=== PATIENT | male | born 1945 | race Two or more races ===

== ENCOUNTER 2019-02-03 12:44 | Inpatient (IN) | payer MEDICARE, MEDICAID ==
[~2019-02-03] VITALS: Ht 167.6 cm; Wt 54.0 kg
[2019-02-03] MEDS ORDERED: SODIUM CHLORIDE 0.9% 500 ML IV ONE (13:50)
[2019-02-03 14:23] LABS: HEMATOCRIT. 47.1 % (42.0-52.0); HEMOGLOBIN. 15.8 g/dL (14.0-18.0); MEAN CORPUSCULAR HEMOGLOBIN 31.3 pg (28.0-32.0); MEAN CORPUSCULAR VOLUME 93.3 fL (80.0-94.0); MEAN PLATELET VOLUME 9.1 fl (7.4-10.4); PLATELET 203 x1000/uL (130-400); RED BLOOD CELL COUNT 5.06 mill/uL (4.7-6.1); RED CELL DISTRIBUTION WIDTH 15.1 % (11.6-14.6)
[2019-02-03 14:27] LABS: CHLORIDE 98 mEq/L (98-107)
[2019-02-03 14:38] LABS: CREATINE KINASE 775 IU/L (39-308)
[2019-02-03 14:39] LABS: CREATINE KINASE MB FRACTION 15.2 ng/mL (0.5-3.6)
[2019-02-03] MEDS ORDERED: FUROSEMIDE 20MG/2ML VIAL IVP ONE (15:00)
[2019-02-03] MEDS: PIPERACILLIN/TAZ 3.375G PREMIX 50 ML IV ONE ×2 (15:15→16:30)
[2019-02-03] MEDS: LEVOFLOXACIN 500MG PREMIX 100 ML IV ONE ×2 (15:15→16:30)
[2019-02-03 15:29] LABS: PLATELET ESTIMATE NORMAL
[2019-02-03] MEDS ORDERED: ASPIRIN 81MG TABLET PO ONE (16:00)
[2019-02-03 16:03] LABS: CLARITY URINE CLEAR (CLEAR); COLOR URINE YELLOW (YELLOW); KETONES URINE 1+ (NEGATIVE); LEUKOCYTE ESTERASE URINE NEGATIVE (NEGATIVE); NITRITE URINE NEGATIVE (NEGATIVE); OCCULT BLOOD URINE NEGATIVE (NEGATIVE); PROTEIN URINE NEGATIVE (NEGATIVE); SPECIFIC GRAVITY URINE 1.015 (1.005-1.030)
[2019-02-03 16:21] LABS: *AMPHETAMINES SCREEN URINE NEGATIVE (NEGATIVE); *BARBITURATES SCREEN URINE NEGATIVE (NEGATIVE)
[2019-02-03 16:22] LABS: *BENZODIAZEPINES SCREEN URINE NEGATIVE (NEGATIVE); *COCAINE SCREEN URINE NEGATIVE (NEGATIVE); CANNABINOID URINE SCREEN NEGATIVE (NEGATIVE); METHADONE URINE SCREEN NEGATIVE (NEGATIVE); OPIATES URINE SCREEN NEGATIVE (NEGATIVE); PHENCYCLIDINE URINE SCREEN NEGATIVE (NEGATIVE)
[2019-02-03 16:23] LABS: INR 1.2; PARTIAL THROMBOPLASTIN TIME 32.5 sec (23.4-31.0); PROTHROMBIN TIME 12.6 sec (9.6-11.0)
[2019-02-03] MEDS ORDERED: GUAIFENESIN 200MG/10ML SUGAR FREE UDC PO PRN (17:00)
[2019-02-03] MEDS ORDERED: BUDESONIDE 0.5MG/2ML NEB HHN SCH (17:00)
[2019-02-03] MEDS ORDERED: NICOTINE 21MG PATCH TD SCH (17:00)
[2019-02-03] MEDS ORDERED: MAGNESIUM/ALUMINUM HYDROXIDE/SIMETHICONE 30ML UDC PO PRN (17:00)
[2019-02-03] MEDS ORDERED: CLONIDINE 0.1MG TABLET PO PRN (17:00)
[2019-02-03] MEDS ORDERED: HYDROCODONE/ACETAMINOPHEN 5/325MG TABLET PO PRN (17:00)
[2019-02-03] MEDS ORDERED: DIPHENHYDRAMINE 50MG/ML VIAL IV PRN (17:00)
[2019-02-03] MEDS ORDERED: DOCUSATE SODIUM 100MG CAPSULE PO PRN (17:00)
[2019-02-03] MEDS ORDERED: ONDANSETRON HCL 4MG/2ML INJ IV PRN (17:00)
[2019-02-03] MEDS ORDERED: ACETAMINOPHEN 325MG TABLET PO PRN (17:00)
[2019-02-03] MEDS ORDERED: IPRATROPIUM/ALBUTEROL 0.5-3(2.5)MG/3ML NEB HHN PRN (17:00)
[2019-02-03 19:05] LABS: PHOSPHORUS 2.3 mg/dL (2.5-4.9)
[2019-02-03] MEDS ORDERED: SODIUM CHLORIDE 0.9% 250 ML IV ONE (19:30)
[2019-02-03] MEDS ORDERED: IPRATROPIUM/ALBUTEROL 0.5-3(2.5)MG/3ML NEB HHN SCH (20:00)
[2019-02-04] VITALS (12 sets, daily range): BP systolic 89–142; BP diastolic 41–72
[2019-02-04 03:03] LABS: EOSINOPHILS % 1.3 % (0.0-5.0); HEMATOCRIT. 43.5 % (42.0-52.0); HEMOGLOBIN. 14.9 g/dL (14.0-18.0); LYMPHOCYTES % 7.2 % (20.0-50.0); MEAN CORPUSCULAR HEMOGLOBIN 32.3 pg (28.0-32.0); MEAN CORPUSCULAR VOLUME 94.5 fL (80.0-94.0); MEAN PLATELET VOLUME 8.3 fl (7.4-10.4); MONOCYTES % 9.6 % (2.0-8.0); NEUTROPHILS % 80.9 % (40.0-76.0); PLATELET 172 x1000/uL (130-400); RED BLOOD CELL COUNT 4.61 mill/uL (4.7-6.1)
[2019-02-04 03:08] LABS: CHLORIDE 99 mEq/L (98-107)
[2019-02-04 03:17] LABS: LDL CHOLESTEROL 61 mg/dL (5-100)
[2019-02-04 03:18] LABS: CREATINE KINASE MB FRACTION 13.9 ng/mL (0.5-3.6); HDL CHOLESTEROL 34 mg/dL (40-59)
[2019-02-04 03:29] LABS: CREATINE KINASE 1102 IU/L (39-308)
[2019-02-04] MEDS: NICOTINE 21MG PATCH TD SCH (08:18)
[2019-02-04] MEDS ORDERED: DEXTROSE 50% WATER 50ML SYRINGE IV NR (10:30)
[2019-02-04] MEDS ORDERED: FUROSEMIDE 40MG/4ML VIAL IVP NR (12:00)
[2019-02-04] MEDS: BUDESONIDE 0.5MG/2ML NEB HHN SCH ×2 (12:08→20:34)
[2019-02-04] MEDS: IPRATROPIUM/ALBUTEROL 0.5-3(2.5)MG/3ML NEB HHN SCH ×3 (12:08→20:34)
[2019-02-04] MEDS ORDERED: MAGNESIUM 1 G PREMIX 100 ML IV SCH (13:00)
[2019-02-04] MEDS ORDERED: SODIUM CHLORIDE 0.45% 500 ML IV ONE (13:15)
[2019-02-04 13:49] LABS: HEPATITIS B SURFACE ANTIGEN NEGATIVE
[2019-02-04 14:19] LABS: HEPATITIS A AB IGM NEGATIVE (NEGATIVE)
[2019-02-04] MEDS: NEOMY SULF/BACITRAC ZN/POLY OINT 28GM TOP SCH (21:42)
[2019-02-05] VITALS (12 sets, daily range): BP systolic 83–114; BP diastolic 39–65
[2019-02-05] MEDS: IPRATROPIUM/ALBUTEROL 0.5-3(2.5)MG/3ML NEB HHN SCH ×5 (00:06→20:47)
[2019-02-05 06:53] LABS: BASOPHILS % 0.7 % (0.0-2.0); EOSINOPHILS % 1.3 % (0.0-5.0); HEMATOCRIT. 40.9 % (42.0-52.0); HEMOGLOBIN. 14.1 g/dL (14.0-18.0); MEAN CORPUSCULAR HEMOGLOBIN 32.9 pg (28.0-32.0); MEAN CORPUSCULAR VOLUME 95.7 fL (80.0-94.0); MEAN PLATELET VOLUME 8.6 fl (7.4-10.4); MONOCYTES % 11.5 % (2.0-8.0); NEUTROPHILS % 78.5 % (40.0-76.0); PLATELET 162 x1000/uL (130-400); RED BLOOD CELL COUNT 4.27 mill/uL (4.7-6.1); RED CELL DISTRIBUTION WIDTH 15.3 % (11.6-14.6)
[2019-02-05 06:57] LABS: INR 1.1; PROTHROMBIN TIME 11.5 sec (9.6-11.0)
[2019-02-05 07:08] LABS: CHLORIDE 98 mEq/L (98-107)
[2019-02-05 07:25] LABS: CREATINE KINASE 683 IU/L (39-308)
[2019-02-05 07:28] LABS: CREATINE KINASE MB FRACTION 5.3 ng/mL (0.5-3.6)
[2019-02-05] MEDS: BUDESONIDE 0.5MG/2ML NEB HHN SCH ×2 (08:07→20:46)
[2019-02-05] MEDS ORDERED: SODIUM BICARBONATE 4% (2.4MEQ) 5ML VIAL IV ONE (09:41)
[2019-02-05] MEDS: NEOMY SULF/BACITRAC ZN/POLY OINT 28GM TOP SCH ×2 (11:41→21:10)
[2019-02-05] MEDS: NICOTINE 21MG PATCH TD SCH (11:44)
[2019-02-05 12:40] LABS: CREATINE KINASE 608 IU/L (39-308)
[2019-02-05] MEDS: LOSARTAN POTASSIUM 25 MG TABLET PO SCH (12:45)
[2019-02-05] MEDS: CARVEDILOL 3.125 MG TABLET PO SCH ×2 (13:00→21:00)
[2019-02-05 13:21] LABS: METHADONE URINE SCREEN NEGATIVE (NEGATIVE); OPIATES URINE SCREEN NEGATIVE (NEGATIVE)
[2019-02-05 13:22] LABS: *AMPHETAMINES SCREEN URINE NEGATIVE (NEGATIVE); *BARBITURATES SCREEN URINE NEGATIVE (NEGATIVE); *BENZODIAZEPINES SCREEN URINE NEGATIVE (NEGATIVE); *COCAINE SCREEN URINE NEGATIVE (NEGATIVE); CANNABINOID URINE SCREEN NEGATIVE (NEGATIVE); PHENCYCLIDINE URINE SCREEN NEGATIVE (NEGATIVE)
[2019-02-05 19:07] LABS: ANTI-CENTROMERE B ANTIBODIES < 0.2 AI (0.0-0.9); ANTI-JO 1 ABS <0.2 AI (0.0-0.9); RNP ANTIBODY < 0.2 AI (0.0-0.9); SMITH ANTIBODY < 0.2 AI (0.0-0.9)
[2019-02-05 19:12] LABS: ANTI-DNA DOUBLE STRANDED QUANT 3 IU/mL (0-9)
[2019-02-05 20:07] LABS: CLARITY URINE CLEAR (CLEAR); COLOR URINE YELLOW (YELLOW); KETONES URINE NEGATIVE (NEGATIVE); LEUKOCYTE ESTERASE URINE TRACE (NEGATIVE); NITRITE URINE NEGATIVE (NEGATIVE); OCCULT BLOOD URINE 3+ (NEGATIVE); PH URINE 6.5 (4.5-8.0); PROTEIN URINE TRACE (NEGATIVE); SPECIFIC GRAVITY URINE 1.021 (1.005-1.030)
[2019-02-06] VITALS (13 sets, daily range): BP systolic 93–120; BP diastolic 46–70
[2019-02-06] MEDS: IPRATROPIUM/ALBUTEROL 0.5-3(2.5)MG/3ML NEB HHN SCH ×4 (01:50→21:35)
[2019-02-06 05:17] LABS: HIV SCREEN 4G Non Reactive (Non Reactive)
[2019-02-06 06:39] LABS: BASOPHILS % 0.7 % (0.0-2.0); EOSINOPHILS % 2.9 % (0.0-5.0); HEMATOCRIT. 40.4 % (42.0-52.0); HEMOGLOBIN. 13.5 g/dL (14.0-18.0); LYMPHOCYTES % 9.1 % (20.0-50.0); MEAN CORPUSCULAR HEMOGLOBIN 32.2 pg (28.0-32.0); MEAN CORPUSCULAR VOLUME 96.7 fL (80.0-94.0); MEAN PLATELET VOLUME 8.4 fl (7.4-10.4); MONOCYTES % 10.8 % (2.0-8.0); NEUTROPHILS % 76.5 % (40.0-76.0); PLATELET 146 x1000/uL (130-400); RED BLOOD CELL COUNT 4.18 mill/uL (4.7-6.1); RED CELL DISTRIBUTION WIDTH 15.6 % (11.6-14.6)
[2019-02-06 07:12] LABS: CHLORIDE 98 mEq/L (98-107)
[2019-02-06] MEDS: BUDESONIDE 0.5MG/2ML NEB HHN SCH ×2 (08:06→21:35)
[2019-02-06] MEDS: NEOMY SULF/BACITRAC ZN/POLY OINT 28GM TOP SCH ×2 (09:00→14:00)
[2019-02-06] MEDS: LOSARTAN POTASSIUM 25 MG TABLET PO SCH (09:00)
[2019-02-06] MEDS: CARVEDILOL 3.125 MG TABLET PO SCH ×2 (09:00→21:00)
[2019-02-06] MEDS ORDERED: LIDOCAINE HCL 1% 20ML VIAL (Pyxis) INJ ONE ×2 (09:20→11:02)
[2019-02-06] MEDS ORDERED: IODIXANOL 320MG/ML 100 ML BOTTLE IV ONE ×2 (09:21→10:43)
[2019-02-06] MEDS: NICOTINE 21MG PATCH TD SCH (09:23)
[2019-02-06] MEDS ORDERED: NICARDIPINE 100MCG/ML 10ML VIAL (CATH LAB) IV ONE (10:12)
[2019-02-06] MEDS ORDERED: NITROGLYCERIN 50MCG/ML 10ML VIAL (CATH LAB) IV ONE (10:12)
[2019-02-06] MEDS ORDERED: HEPARIN SODIUM 1,000 UNIT/1ML VIAL IV ONE (10:12)
[2019-02-06] MEDS ORDERED: FENTANYL CITRATE/PF 50MCG/ML 2ML VIAL ONE (10:25)
[2019-02-06] MEDS ORDERED: IOHEXOL-300 100 ML BOTTLE ONE (10:25)
[2019-02-06] MEDS ORDERED: CLOPIDOGREL 75MG TABLET ONE (10:45)
[2019-02-06] MEDS ORDERED: ASPIRIN 325MG TABLET ONE (11:19)
[2019-02-06] MEDS ORDERED: ONDANSETRON HCL 4MG/2ML INJ IV PRN (11:30)
[2019-02-06] MEDS ORDERED: ATROPINE SULFATE 1MG/10ML SYR IV PRN (11:30)
[2019-02-06] MEDS ORDERED: ACETAMINOPHEN 325MG TABLET PO PRN (11:30)
[2019-02-06] MEDS ORDERED: ASPIRIN 81MG EC TABLET PO SCH (15:00)
[2019-02-06 19:07] LABS: DRVVT LA 47.8 sec (0.0-47.0); PTT-LA 41.3 sec (0.0-51.9)
[2019-02-07] VITALS (12 sets, daily range): BP systolic 73–120; BP diastolic 39–69
[2019-02-07] MEDS: IPRATROPIUM/ALBUTEROL 0.5-3(2.5)MG/3ML NEB HHN SCH ×4 (02:00→20:27)
[2019-02-07 04:11] LABS: DRVVT MIX LA 38.6 sec (0.0-47.0); LUPUS ANTICOAG INTERPRETATION Comment: (.)
[2019-02-07 07:07] LABS: CHLORIDE 97 mEq/L (98-107)
[2019-02-07 07:13] LABS: BASOPHILS % 0.5 % (0.0-2.0); EOSINOPHILS % 2.4 % (0.0-5.0); HEMATOCRIT. 41.2 % (42.0-52.0); HEMOGLOBIN. 13.9 g/dL (14.0-18.0); LYMPHOCYTES % 7.7 % (20.0-50.0); MEAN CORPUSCULAR HEMOGLOBIN 32.2 pg (28.0-32.0); MEAN CORPUSCULAR VOLUME 95.5 fL (80.0-94.0); MEAN PLATELET VOLUME 8.6 fl (7.4-10.4); MONOCYTES % 9.4 % (2.0-8.0); PLATELET 148 x1000/uL (130-400); RED BLOOD CELL COUNT 4.31 mill/uL (4.7-6.1); RED CELL DISTRIBUTION WIDTH 15.4 % (11.6-14.6)
[2019-02-07] MEDS: CLOPIDOGREL 75MG TABLET PO SCH (08:27)
[2019-02-07] MEDS: ASPIRIN 325MG TABLET PO SCH (08:27)
[2019-02-07] MEDS: CARVEDILOL 3.125 MG TABLET PO SCH ×2 (08:28→21:00)
[2019-02-07] MEDS: LOSARTAN POTASSIUM 25 MG TABLET PO SCH (08:28)
[2019-02-07] MEDS: NICOTINE 21MG PATCH TD SCH (08:28)
[2019-02-07 09:07] LABS: ANGIOTENSION CONVERTING ENZYME 27 U/L (14-82); GLOMERULAR BASEMENT MEMB AB 2 units (0-20)
[2019-02-07] MEDS: BUDESONIDE 0.5MG/2ML NEB HHN SCH (09:15)
[2019-02-07] MEDS: FUROSEMIDE 20MG/2ML VIAL IVP SCH (10:04)
[2019-02-07] MEDS: NEOMY SULF/BACITRAC ZN/POLY OINT 28GM TOP SCH ×2 (10:58→21:25)
[2019-02-07 14:56] LABS: CREATINE KINASE 233 IU/L (39-308)
[2019-02-07 15:06] LABS: ANTI-MYELOPEROXIDASE AB < 9.0 U/mL (0.0-9.0); ANTI-PROTEINASE 3 ABS < 3.5 U/mL (0.0-3.5); ATYPICAL P-ANCA <1:20 titer (Neg:<1:20); CYTOPLASMIC C-ANCA <1:20 titer (Neg:<1:20); PERINUCLEAR P-ANCA <1:20 titer (Neg:<1:20)
[2019-02-08] VITALS (12 sets, daily range): BP systolic 81–127; BP diastolic 43–69
[2019-02-08] MEDS: IPRATROPIUM/ALBUTEROL 0.5-3(2.5)MG/3ML NEB HHN SCH ×3 (01:06→14:28)
[2019-02-08 07:04] LABS: BASOPHILS % 0.6 % (0.0-2.0); EOSINOPHILS % 2.5 % (0.0-5.0); HEMATOCRIT. 38.8 % (42.0-52.0); HEMOGLOBIN. 13.5 g/dL (14.0-18.0); LYMPHOCYTES % 8.2 % (20.0-50.0); MEAN CORPUSCULAR HEMOGLOBIN 33.7 pg (28.0-32.0); MEAN CORPUSCULAR VOLUME 96.9 fL (80.0-94.0); MEAN PLATELET VOLUME 8.8 fl (7.4-10.4); MONOCYTES % 9.1 % (2.0-8.0); NEUTROPHILS % 79.6 % (40.0-76.0); PLATELET 137 x1000/uL (130-400); RED BLOOD CELL COUNT 4.01 mill/uL (4.7-6.1); RED CELL DISTRIBUTION WIDTH 15.4 % (11.6-14.6)
[2019-02-08 07:26] LABS: CHLORIDE 97 mEq/L (98-107)
[2019-02-08 07:46] LABS: PHOSPHORUS 2.4 mg/dL (2.5-4.9)
[2019-02-08] MEDS: NICOTINE 21MG PATCH TD SCH (09:34)
[2019-02-08] MEDS: FUROSEMIDE 20MG/2ML VIAL IVP SCH (09:34)
[2019-02-08] MEDS: LOSARTAN POTASSIUM 25 MG TABLET PO SCH (09:35)
[2019-02-08] MEDS: ASPIRIN 325MG TABLET PO SCH (09:35)
[2019-02-08] MEDS: NEOMY SULF/BACITRAC ZN/POLY OINT 28GM TOP SCH ×2 (09:35→21:53)
[2019-02-08] MEDS: CLOPIDOGREL 75MG TABLET PO SCH (09:35)
[2019-02-08] MEDS: CARVEDILOL 3.125 MG TABLET PO SCH ×2 (09:35→21:00)
[2019-02-08] MEDS ORDERED: SODIUM CHLORIDE 0.9% 500 ML IV ONE (13:00)
[2019-02-08] MEDS ORDERED: POTASSIUM-SODIUM PHOSPHATE POWDER PACKET PO NR (13:05)
[2019-02-08 15:09] LABS: ACTIN (SMOOTH MUSCLE) ANTIBODY 13 Units (0-19)
[2019-02-09] VITALS (12 sets, daily range): BP systolic 90–129; BP diastolic 40–80
[2019-02-09] MEDS: IPRATROPIUM/ALBUTEROL 0.5-3(2.5)MG/3ML NEB HHN SCH ×4 (02:06→20:38)
[2019-02-09 05:46] LABS: BASOPHILS % 0.7 % (0.0-2.0); EOSINOPHILS % 2.4 % (0.0-5.0); HEMATOCRIT. 42.3 % (42.0-52.0); HEMOGLOBIN. 14.5 g/dL (14.0-18.0); MEAN CORPUSCULAR HEMOGLOBIN 33.8 pg (28.0-32.0); MEAN CORPUSCULAR VOLUME 98.6 fL (80.0-94.0); MEAN PLATELET VOLUME 8.8 fl (7.4-10.4); NEUTROPHILS % 78.9 % (40.0-76.0); PLATELET 142 x1000/uL (130-400); RED BLOOD CELL COUNT 4.29 mill/uL (4.7-6.1); RED CELL DISTRIBUTION WIDTH 15.8 % (11.6-14.6)
[2019-02-09 05:55] LABS: CHLORIDE 99 mEq/L (98-107)
[2019-02-09 06:03] LABS: CREATINE KINASE 133 IU/L (39-308)
[2019-02-09] MEDS: NICOTINE 21MG PATCH TD SCH (08:31)
[2019-02-09] MEDS: CLOPIDOGREL 75MG TABLET PO SCH (08:31)
[2019-02-09] MEDS: ASPIRIN 325MG TABLET PO SCH (08:31)
[2019-02-09] MEDS: NEOMY SULF/BACITRAC ZN/POLY OINT 28GM TOP SCH (08:31)
[2019-02-09] MEDS: LOSARTAN POTASSIUM 25 MG TABLET PO SCH (08:32)
[2019-02-09] MEDS: CARVEDILOL 3.125 MG TABLET PO SCH (08:32)
[2019-02-10 13:09] LABS: ANTI-CARDIOLIPIN AB IGA < 9 APL U/mL (0-11); ANTI-CARDIOLIPIN AB IGG < 9 GPL U/mL (0-14)
[2019-02-11 04:19] LABS: ANTI-HU ANTIBODIES <1:10 titer (.)
== END 2019-02-09 21:30 | DRG 246 ==
LOC: ER 12:44 → 5EST 15:07 → EDBEDREQ 15:10 → EDBEDREQSVC 15:10 → ENRESERV 02-04 00:05 → ER 02-04 01:48 → 3WST 02-06 11:27
PROVIDERS: ADMIT Internal Medicine; ATTEND Internal Medicine
PROC: 0W993ZZ Drainage of Right Pleural Cavity, Percutaneous Approach (ICD-10-PCS; principal; 2019-02-05)
PROC: 027135Z Dilation of Coronary Artery, Two Arteries with Two Drug-eluting Intraluminal Devices, Percutaneous Approach (ICD-10-PCS; 2019-02-06)
PROC: 4A023N7 Measurement of Cardiac Sampling and Pressure, Left Heart, Percutaneous Approach (ICD-10-PCS; 2019-02-06)
PROC: 4A033BC Measurement of Arterial Pressure, Coronary, Percutaneous Approach (ICD-10-PCS; 2019-02-06)
PROC: B211YZZ Fluoroscopy of Multiple Coronary Arteries using Other Contrast (ICD-10-PCS; 2019-02-06)
PROC: B215YZZ Fluoroscopy of Left Heart using Other Contrast (ICD-10-PCS; 2019-02-06)
DX: I21.4 Non-ST elevation (NSTEMI) myocardial infarction (principal); J96.00 Acute respiratory failure, unspecified whether with hypoxia or hypercapnia; I50.21 Acute systolic (congestive) heart failure; J44.1 Chronic obstructive pulmonary disease with (acute) exacerbation; E44.0 Moderate protein-calorie malnutrition; J84.9 Interstitial pulmonary disease, unspecified; J91.8 Pleural effusion in other conditions classified elsewhere; E87.1 Hypo-osmolality and hyponatremia; I42.9 Cardiomyopathy, unspecified; I11.0 Hypertensive heart disease with heart failure; T79.6XXA Traumatic ischemia of muscle, initial encounter; E83.42 Hypomagnesemia; R74.0 Nonspecific elevation of levels of transaminase and lactic acid dehydrogenase [LDH]; G80.9 Cerebral palsy, unspecified; L89.320 Pressure ulcer of left buttock, unstageable; L89.310 Pressure ulcer of right buttock, unstageable; F17.210 Nicotine dependence, cigarettes, uncomplicated; R79.89 Other specified abnormal findings of blood chemistry; L89.159 Pressure ulcer of sacral region, unspecified stage; N50.89 Other specified disorders of the male genital organs; R82.71 Bacteriuria; R55 Syncope and collapse; R91.8 Other nonspecific abnormal finding of lung field; K76.1 Chronic passive congestion of liver; I25.10 Atherosclerotic heart disease of native coronary artery without angina pectoris; I44.7 Left bundle-branch block, unspecified; F79 Unspecified intellectual disabilities; I95.89 Other hypotension; R29.6 Repeated falls; E83.39 Other disorders of phosphorus metabolism; R15.9 Full incontinence of feces; R32 Unspecified urinary incontinence; S40.812A Abrasion of left upper arm, initial encounter; S40.811A Abrasion of right upper arm, initial encounter; W18.30XA Fall on same level, unspecified, initial encounter; Y93.89 Activity, other specified; Y92.89 Other specified places as the place of occurrence of the external cause; Y99.8 Other external cause status; Z82.49 Family history of ischemic heart disease and other diseases of the circulatory system; Z86.73 Personal history of transient ischemic attack (TIA), and cerebral infarction without residual deficits
CPT/HCPCS: 32555; 36415; 71045; 74176; 76705; 80048; 80061; 80076; 80305; 82164; 82533; 82550; 82553; 82595; 82962; 83036; 83520; 83735; 83880; 84100; 84134; 84443; 84484; 85347; 85379; 85613; 85651; 85732; 86038; 86140; 86147; 86225; 86235; 86256; 86705; 86709; 86803; 87340; 87389; 87804; 88108; 88312; 92928; 92978; 93005; 93306; 93458; 93970; 94640; 96365; 96368; 96375; 97162; 97166; 97530; 99291; C1760; C1769; C1874; C1887; C1893; J1644; J1940; J1956; J2543; J3010; J3475; J3490; J7040; J7620; J7626; Q9967

== ENCOUNTER 2019-02-11 13:13 | Inpatient (IN) | payer MEDICARE, MEDICAID ==
[~2019-02-11] VITALS: Ht 172.7 cm; Wt 54.4 kg
[2019-02-11] VITALS (15 sets, daily range): BP systolic 74–166; BP diastolic 60–117
[2019-02-11] MEDS ORDERED: PROPOFOL 10MG/ML 100ML 100 ML IV ONE (13:30)
[2019-02-11] MEDS ORDERED: ETOMIDATE 2MG/ML 10ML VIAL IV ONE (13:30)
[2019-02-11] MEDS ORDERED: SODIUM CHLORIDE 0.9% 1000ML BAG (SEPSIS BOLUS) IV ONE (13:30)
[2019-02-11] MEDS ORDERED: PIPERACILLIN/TAZOBACTAM 3.375GM/50ML PREMIX IV ONE (13:30)
[2019-02-11] MEDS ORDERED: METHYLPREDNISOLONE SOD SUCC 125 MG/2 ML VIAL IV STA (13:30)
[2019-02-11] MEDS ORDERED: ALBUTEROL (0.083%) 2.5MG/3ML NEB HHN SCH (13:30)
[2019-02-11] MEDS ORDERED: IPRATROPIUM BROMIDE (0.02%) 0.5MG/2.5ML NEB HHN STA (13:30)
[2019-02-11] MEDS ORDERED: SUCCINYLCHOLINE CHLORIDE 200MG/10ML IV ONE (13:30)
[2019-02-11] MEDS ORDERED: NOREPINEPHRINE 4MG/250ML PMX 250 ML IV ONE ×2 (13:35→13:45)
[2019-02-11] MEDS ORDERED: VANCOMYCIN 1500MG in DEXTROSE 5% WATER 250ML IV SCH (13:45)
[2019-02-11] MEDS ORDERED: PIPERACILLIN/TAZ 3.375G PREMIX 50 ML IV SCH (13:45)
[2019-02-11 13:48] LABS: BASOPHILS % 0.6 % (0.0-2.0); EOSINOPHILS % 1.1 % (0.0-5.0); HEMATOCRIT. 43.3 % (42.0-52.0); LYMPHOCYTES % 8.5 % (20.0-50.0); MEAN CORPUSCULAR HEMOGLOBIN 33.5 pg (28.0-32.0); MEAN CORPUSCULAR VOLUME 96.5 fL (80.0-94.0); MEAN PLATELET VOLUME 9.2 fl (7.4-10.4); NEUTROPHILS % 82.8 % (40.0-76.0); PLATELET 223 x1000/uL (130-400); RED BLOOD CELL COUNT 4.48 mill/uL (4.7-6.1); RED CELL DISTRIBUTION WIDTH 15.2 % (11.6-14.6)
[2019-02-11 13:54] LABS: CHLORIDE 93 mEq/L (98-107)
[2019-02-11 13:55] LABS: PROTHROMBIN TIME 10.2 sec (9.6-11.0)
[2019-02-11 14:03] LABS: BG BASE EXCESS 1.5 mmol/L (-2.0-2.0); BG CARBOXYHEMOGLOBIN 1.3 % (0.5-1.5); BG DEOXYHEMOGLOBIN 1.4 % (0.0-5.0); BG FRACTION INSPIRED OXYGEN 100; BG HCO3 ACT 27.8 mmol/L (22.0-26.0); BG OXYGEN SATURATION 98.6 % (92.0-98.5); BG OXYHEMOGLOBIN 97.3 % (94.0-97.0); BG PCO2 49.8 mmHg (35.0-45.0); BG PH 7.364 (7.350-7.450); BG SAMPLE SITE RIGHT BRACHIAL; BG TIDAL VOLUME(mL) 500 mL; BG TOTAL HEMOGLOBIN 14.5 g/dL (12.0-18.0); BG VENT MODE VENT - A/C; BG VENT RATE 20 set
[2019-02-11] MEDS ORDERED: GUAIFENESIN 200MG/10ML SUGAR FREE UDC PO PRN (15:30)
[2019-02-11] MEDS: PIPERACILLIN/TAZ 3.375G PREMIX 50 ML IV SCH ×2 (15:30→23:17)
[2019-02-11] MEDS ORDERED: HYDROMORPHONE HCL/PF 2MG/ML CPJ IV PRN (15:30)
[2019-02-11] MEDS ORDERED: IPRATROPIUM/ALBUTEROL 0.5-3(2.5)MG/3ML NEB INH PRN (15:30)
[2019-02-11] MEDS ORDERED: HYDROCODONE/ACETAMINOPHEN 5/325MG TABLET PO PRN (15:30)
[2019-02-11] MEDS ORDERED: DIPHENHYDRAMINE 50MG/ML VIAL IV PRN (15:30)
[2019-02-11] MEDS ORDERED: LORAZEPAM 2MG/ML CPJ IV PRN (15:30)
[2019-02-11] MEDS ORDERED: CLONIDINE 0.1MG TABLET PO PRN (15:30)
[2019-02-11] MEDS ORDERED: ACETAMINOPHEN 325MG TABLET PO PRN (15:30)
[2019-02-11] MEDS ORDERED: DOCUSATE SODIUM 100MG CAPSULE PO PRN (15:30)
[2019-02-11] MEDS ORDERED: MAGNESIUM/ALUMINUM HYDROXIDE/SIMETHICONE 30ML UDC PO PRN (15:30)
[2019-02-11] MEDS ORDERED: HYDRALAZINE 20MG/ML VIAL IV PRN (15:30)
[2019-02-11] MEDS ORDERED: NOREPINEPHRINE 4 MG in DEXT 5% WATER 246 ML IV PRN (15:30)
[2019-02-11] MEDS ORDERED: ONDANSETRON HCL 4MG/2ML INJ IV PRN (15:30)
[2019-02-11 16:44] LABS: CLARITY URINE CLEAR (CLEAR); COLOR URINE YELLOW (YELLOW); KETONES URINE NEGATIVE (NEGATIVE); LEUKOCYTE ESTERASE URINE 1+ (NEGATIVE); NITRITE URINE NEGATIVE (NEGATIVE); OCCULT BLOOD URINE NEGATIVE (NEGATIVE); PH URINE 5.5 (4.5-8.0); PROTEIN URINE NEGATIVE (NEGATIVE); SPECIFIC GRAVITY URINE 1.017 (1.005-1.030)
[2019-02-11] MEDS ORDERED: IOHEXOL-350 100 ML BOTTLE ONE (17:02)
[2019-02-11] MEDS ORDERED: FUROSEMIDE 40MG/4ML VIAL IVP NR (17:45)
[2019-02-11] MEDS: ENOXAPARIN 40MG/0.4ML SYR SUBCUT SCH (18:29)
[2019-02-11] MEDS: PANTOPRAZOLE SODIUM 40 MG/VIAL IV SCH (18:29)
[2019-02-11] MEDS: PROPOFOL 10MG/ML 100ML 100 ML IV PRN ×2 (19:19→23:11)
[2019-02-11] MEDS: NOREPINEPHRINE 8 MG in DEXT 5% WATER 242 ML IV PRN (19:42)
[2019-02-11] MEDS: IPRATROPIUM/ALBUTEROL 0.5-3(2.5)MG/3ML NEB HHN SCH (20:26)
[2019-02-11] MEDS: SODIUM CHLORIDE 0.9% INJ 3ML FLUSH IVF SCH (22:00)
[2019-02-11 23:19] LABS: CREATINE KINASE MB FRACTION 3.4 ng/mL (0.5-3.6)
[2019-02-12] VITALS (89 sets, daily range): BP systolic 52–161; BP diastolic 29–107
[2019-02-12] MEDS: NOREPINEPHRINE 8 MG in DEXT 5% WATER 242 ML IV PRN ×5 (00:15→23:49)
[2019-02-12] MEDS: IPRATROPIUM/ALBUTEROL 0.5-3(2.5)MG/3ML NEB HHN SCH ×6 (00:21→20:29)
[2019-02-12] MEDS ORDERED: VANCOMYCIN 1 G PREMIX 200 ML IV SCH (01:00)
[2019-02-12 05:55] LABS: HEMATOCRIT. 45.5 % (42.0-52.0); HEMOGLOBIN. 16.2 g/dL (14.0-18.0); MEAN CORPUSCULAR HEMOGLOBIN 33.5 pg (28.0-32.0); MEAN CORPUSCULAR VOLUME 94.5 fL (80.0-94.0); MEAN PLATELET VOLUME 9.1 fl (7.4-10.4); PLATELET 252 x1000/uL (130-400); RED BLOOD CELL COUNT 4.81 mill/uL (4.7-6.1)
[2019-02-12] MEDS: SODIUM CHLORIDE 0.9% INJ 3ML FLUSH IVF SCH ×3 (06:11→22:39)
[2019-02-12 06:16] LABS: CHLORIDE 92 mEq/L (98-107)
[2019-02-12 06:36] LABS: CREATINE KINASE 62 IU/L (39-308); T4 FREE 0.85 ng/dL (0.76-1.46)
[2019-02-12] MEDS: BUDESONIDE 0.5MG/2ML NEB HHN SCH ×2 (08:04→20:29)
[2019-02-12] MEDS: PIPERACILLIN/TAZ 3.375G PREMIX 50 ML IV SCH ×3 (08:30→23:37)
[2019-02-12] MEDS: PANTOPRAZOLE SODIUM 40 MG/VIAL IV SCH (08:30)
[2019-02-12 08:35] LABS: BG BASE EXCESS 6.9 mmol/L (-2.0-2.0); BG CARBOXYHEMOGLOBIN 0.8 % (0.5-1.5); BG DEOXYHEMOGLOBIN 4.3 % (0.0-5.0); BG FRACTION INSPIRED OXYGEN 40; BG HCO3 ACT 31.1 mmol/L (22.0-26.0); BG METHEMOGLOBIN 0.2 % (0.0-1.5); BG OXYGEN SATURATION 95.7 % (92.0-98.5); BG OXYHEMOGLOBIN 94.7 % (94.0-97.0); BG PCO2 42.5 mmHg (35.0-45.0); BG PH 7.482 (7.350-7.450); BG PO2 74.2 mmHg (75.0-100.0); BG SAMPLE SITE RIGHT RADIAL; BG TIDAL VOLUME(mL) 500 mL; BG VENT MODE VENT - A/C; BG VENT RATE 14 set
[2019-02-12] MEDS ORDERED: ASPIRIN 81MG EC TABLET PO SCH (09:00)
[2019-02-12] MEDS ORDERED: PROPOFOL 10MG/ML 100ML 100 ML IV PRN (10:15)
[2019-02-12] MEDS ORDERED: FUROSEMIDE 40MG/4ML VIAL IVP NR (10:15)
[2019-02-12] MEDS ORDERED: ASPIRIN 81MG EC TABLET PO NR (11:15)
[2019-02-12] MEDS: CLOPIDOGREL 75MG TABLET PO SCH (11:38)
[2019-02-12 11:44] LABS: PLATELET ESTIMATE NORMAL
[2019-02-12] MEDS: FENTANYL CITRATE/PF 500 MCG in SODIUM CHLORIDE 0.9% 40 ML IV PRN (11:44)
[2019-02-12] MEDS: VANCOMYCIN 750 MG PREMIX 150 ML IV SCH (14:40)
[2019-02-12] MEDS: ENOXAPARIN 40MG/0.4ML SYR SUBCUT SCH (17:53)
[2019-02-13] VITALS (83 sets, daily range): BP systolic 67–163; BP diastolic 37–99
[2019-02-13] MEDS: IPRATROPIUM/ALBUTEROL 0.5-3(2.5)MG/3ML NEB HHN SCH ×6 (00:34→20:24)
[2019-02-13] MEDS: VANCOMYCIN 750 MG PREMIX 150 ML IV SCH ×2 (01:32→13:40)
[2019-02-13] MEDS: SODIUM CHLORIDE 0.9% INJ 3ML FLUSH IVF SCH ×3 (05:24→22:19)
[2019-02-13 05:38] LABS: CREATINE KINASE MB FRACTION 1.6 ng/mL (0.5-3.6)
[2019-02-13] MEDS: NOREPINEPHRINE 8 MG in DEXT 5% WATER 242 ML IV PRN ×2 (05:57→13:41)
[2019-02-13] MEDS: BUDESONIDE 0.5MG/2ML NEB HHN SCH ×2 (07:33→20:24)
[2019-02-13] MEDS: PIPERACILLIN/TAZ 3.375G PREMIX 50 ML IV SCH ×3 (07:46→23:51)
[2019-02-13 07:52] LABS: BG BASE EXCESS 5.9 mmol/L (-2.0-2.0); BG CARBOXYHEMOGLOBIN 0.8 % (0.5-1.5); BG DEOXYHEMOGLOBIN 1.8 % (0.0-5.0); BG HCO3 ACT 28.2 mmol/L (22.0-26.0); BG METHEMOGLOBIN 0.2 % (0.0-1.5); BG OXYGEN SATURATION 98.2 % (92.0-98.5); BG OXYHEMOGLOBIN 97.2 % (94.0-97.0); BG PCO2 33.4 mmHg (35.0-45.0); BG PH 7.544 (7.350-7.450); BG PO2 106.7 mmHg (75.0-100.0); BG SAMPLE SITE RIGHT RADIAL; BG TIDAL VOLUME(mL) 500 mL; BG TOTAL HEMOGLOBIN 14.3 g/dL (12.0-18.0); BG VENT MODE VENT - A/C; BG VENT RATE 20 set
[2019-02-13 08:04] LABS: HEMATOCRIT 40.9 % (42.0-52.0); HEMOGLOBIN 14.2 g/dL (14.0-18.0); MEAN CORPUSCULAR HEMOGLOBIN 32.9 pg (28.0-32.0); PLATELET 247 x1000/uL (130-400); RED CELL DISTRIBUTION WIDTH 15.6 % (11.6-14.6)
[2019-02-13] MEDS: CLOPIDOGREL 75MG TABLET PO SCH (08:06)
[2019-02-13 08:07] LABS: CHLORIDE 93 mEq/L (98-107)
[2019-02-13] MEDS: PANTOPRAZOLE SODIUM 40 MG/VIAL IV SCH (08:07)
[2019-02-13] MEDS ORDERED: ASPIRIN 325MG EC TABLET PO SCH (09:00)
[2019-02-13] MEDS: FENTANYL CITRATE/PF 500 MCG in SODIUM CHLORIDE 0.9% 40 ML IV PRN ×3 (12:29)
[2019-02-13] MEDS: ENOXAPARIN 40MG/0.4ML SYR SUBCUT SCH (17:41)
[2019-02-14] VITALS (92 sets, daily range): BP systolic 32–144; BP diastolic 25–77
[2019-02-14] MEDS: IPRATROPIUM/ALBUTEROL 0.5-3(2.5)MG/3ML NEB HHN SCH ×3 (00:21→20:30)
[2019-02-14] MEDS: FENTANYL CITRATE/PF 500 MCG in SODIUM CHLORIDE 0.9% 40 ML IV PRN (02:48)
[2019-02-14] MEDS: SODIUM CHLORIDE 0.9% INJ 3ML FLUSH IVF SCH ×3 (05:01→21:05)
[2019-02-14] MEDS: VANCOMYCIN 750 MG PREMIX 150 ML IV SCH (05:04)
[2019-02-14 05:42] LABS: BASOPHILS % 0.8 % (0.0-2.0); EOSINOPHILS % 0.5 % (0.0-5.0); HEMOGLOBIN. 13.1 g/dL (14.0-18.0); LYMPHOCYTES % 7.6 % (20.0-50.0); MEAN CORPUSCULAR HEMOGLOBIN 34.1 pg (28.0-32.0); MEAN CORPUSCULAR VOLUME 96.1 fL (80.0-94.0); MEAN PLATELET VOLUME 8.9 fl (7.4-10.4); MONOCYTES % 10.5 % (2.0-8.0); NEUTROPHILS % 80.6 % (40.0-76.0); PLATELET 188 x1000/uL (130-400); RED BLOOD CELL COUNT 3.85 mill/uL (4.7-6.1); RED CELL DISTRIBUTION WIDTH 15.1 % (11.6-14.6)
[2019-02-14 05:50] LABS: CHLORIDE 95 mEq/L (98-107)
[2019-02-14] MEDS: PIPERACILLIN/TAZ 3.375G PREMIX 50 ML IV SCH ×3 (07:54→23:19)
[2019-02-14] MEDS: NOREPINEPHRINE 8 MG in DEXT 5% WATER 242 ML IV PRN ×2 (07:56→18:31)
[2019-02-14] MEDS: PANTOPRAZOLE SODIUM 40 MG/VIAL IV SCH (08:44)
[2019-02-14] MEDS: CLOPIDOGREL 75MG TABLET PO SCH (08:44)
[2019-02-14 08:46] LABS: BG BASE EXCESS 3.7 mmol/L (-2.0-2.0); BG DEOXYHEMOGLOBIN 2.1 % (0.0-5.0); BG FRACTION INSPIRED OXYGEN 40; BG HCO3 ACT 26.8 mmol/L (22.0-26.0); BG OXYGEN SATURATION 97.9 % (92.0-98.5); BG OXYHEMOGLOBIN 97.9 % (94.0-97.0); BG PCO2 35.5 mmHg (35.0-45.0); BG PH 7.496 (7.350-7.450); BG PO2 106.5 mmHg (75.0-100.0); BG SAMPLE SITE LEFT BRACHIAL; BG TIDAL VOLUME(mL) 500 mL; BG TOTAL HEMOGLOBIN 12.6 g/dL (12.0-18.0); BG VENT MODE VENT - A/C; BG VENT RATE 16 set
[2019-02-14] MEDS ORDERED: BISACODYL 5MG TABLET PO PRN (09:45)
[2019-02-14] MEDS ORDERED: LACTULOSE 20G/30ML UDC PO SCH (09:45)
[2019-02-14] MEDS: ASPIRIN 325MG TABLET PO SCH (10:31)
[2019-02-14] MEDS: DOCUSATE SODIUM SUGAR FREE 100MG/10ML UDC NG SCH (10:36)
[2019-02-14] MEDS ORDERED: MORPHINE SULFATE 4 MG/ML CPJ (NOT FOR IM USE) IV PRN (12:00)
[2019-02-14] MEDS ORDERED: FUROSEMIDE 40MG/4ML VIAL IVP SCH (12:00)
[2019-02-14] MEDS: NEOMY SULF/BACITRAC ZN/POLY OINT 28GM TOP SCH ×2 (17:09→21:04)
[2019-02-14] MEDS: ENOXAPARIN 40MG/0.4ML SYR SUBCUT SCH (17:09)
[2019-02-14] MEDS: BUDESONIDE 0.5MG/2ML NEB HHN SCH (20:31)
[2019-02-15] VITALS (88 sets, daily range): BP systolic 61–137; BP diastolic 39–84
[2019-02-15] MEDS: IPRATROPIUM/ALBUTEROL 0.5-3(2.5)MG/3ML NEB HHN SCH ×4 (00:10→20:01)
[2019-02-15] MEDS: VANCOMYCIN 750 MG PREMIX 150 ML IV SCH ×2 (01:06→17:25)
[2019-02-15 05:40] LABS: BASOPHILS % 1.2 % (0.0-2.0); EOSINOPHILS % 1.7 % (0.0-5.0); HEMATOCRIT. 38.3 % (42.0-52.0); LYMPHOCYTES % 8.3 % (20.0-50.0); MEAN CORPUSCULAR HEMOGLOBIN 32.1 pg (28.0-32.0); MEAN CORPUSCULAR VOLUME 94.1 fL (80.0-94.0); MEAN PLATELET VOLUME 8.8 fl (7.4-10.4); MONOCYTES % 9.4 % (2.0-8.0); NEUTROPHILS % 79.4 % (40.0-76.0); PLATELET 187 x1000/uL (130-400); RED BLOOD CELL COUNT 4.07 mill/uL (4.7-6.1); RED CELL DISTRIBUTION WIDTH 15.4 % (11.6-14.6)
[2019-02-15] MEDS: NOREPINEPHRINE 8 MG in DEXT 5% WATER 242 ML IV PRN ×2 (05:45→15:21)
[2019-02-15] MEDS: SODIUM CHLORIDE 0.9% INJ 3ML FLUSH IVF SCH ×3 (06:00→22:00)
[2019-02-15 06:14] LABS: CHLORIDE 94 mEq/L (98-107)
[2019-02-15] MEDS: NEOMY SULF/BACITRAC ZN/POLY OINT 28GM TOP SCH (08:19)
[2019-02-15] MEDS: CLOPIDOGREL 75MG TABLET PO SCH (08:19)
[2019-02-15] MEDS: ASPIRIN 325MG TABLET PO SCH (08:19)
[2019-02-15] MEDS: PANTOPRAZOLE SODIUM 40 MG/VIAL IV SCH (08:19)
[2019-02-15] MEDS: PIPERACILLIN/TAZ 3.375G PREMIX 50 ML IV SCH ×2 (08:19→14:04)
[2019-02-15] MEDS: DOCUSATE SODIUM SUGAR FREE 100MG/10ML UDC NG SCH (08:19)
[2019-02-15 08:25] LABS: BG BASE EXCESS 7.6 mmol/L (-2.0-2.0); BG DEOXYHEMOGLOBIN 1.4 % (0.0-5.0); BG HCO3 ACT 31.9 mmol/L (22.0-26.0); BG METHEMOGLOBIN 0.3 % (0.0-1.5); BG OXYGEN SATURATION 98.6 % (92.0-98.5); BG OXYHEMOGLOBIN 97.3 % (94.0-97.0); BG PCO2 43.3 mmHg (35.0-45.0); BG PH 7.485 (7.350-7.450); BG PO2 123.1 mmHg (75.0-100.0); BG SAMPLE SITE RIGHT RADIAL; BG TIDAL VOLUME(mL) 500 mL; BG TOTAL HEMOGLOBIN 13.2 g/dL (12.0-18.0); BG VENT MODE VENT - SIMV; BG VENT RATE 10 set
[2019-02-15] MEDS: BUDESONIDE 0.5MG/2ML NEB HHN SCH ×2 (08:45→20:01)
[2019-02-15] MEDS: ENOXAPARIN 40MG/0.4ML SYR SUBCUT SCH (17:25)
[2019-02-16] VITALS (89 sets, daily range): BP systolic 72–137; BP diastolic 32–83
[2019-02-16] MEDS: IPRATROPIUM/ALBUTEROL 0.5-3(2.5)MG/3ML NEB HHN SCH ×6 (00:13→20:12)
[2019-02-16] MEDS: NEOMY SULF/BACITRAC ZN/POLY OINT 28GM TOP SCH ×3 (00:56→22:59)
[2019-02-16] MEDS: NOREPINEPHRINE 8 MG in DEXT 5% WATER 242 ML IV PRN ×3 (00:57→19:32)
[2019-02-16] MEDS: PIPERACILLIN/TAZ 3.375G PREMIX 50 ML IV SCH ×4 (00:57→23:00)
[2019-02-16 05:37] LABS: HEMATOCRIT. 37.4 % (42.0-52.0); HEMOGLOBIN. 12.9 g/dL (14.0-18.0); MEAN CORPUSCULAR HEMOGLOBIN 33.1 pg (28.0-32.0); MEAN PLATELET VOLUME 8.9 fl (7.4-10.4); PLATELET 185 x1000/uL (130-400); RED CELL DISTRIBUTION WIDTH 15.2 % (11.6-14.6)
[2019-02-16 05:42] LABS: CHLORIDE 95 mEq/L (98-107)
[2019-02-16] MEDS: SODIUM CHLORIDE 0.9% INJ 3ML FLUSH IVF SCH ×3 (06:00→23:00)
[2019-02-16] MEDS ORDERED: SODIUM BICARBONATE 8.4% 1 MEQ/ML 50ML SYR IV SCH (07:15)
[2019-02-16] MEDS: CLOPIDOGREL 75MG TABLET PO SCH (07:56)
[2019-02-16] MEDS: DOCUSATE SODIUM SUGAR FREE 100MG/10ML UDC NG SCH (07:56)
[2019-02-16] MEDS: ASPIRIN 325MG TABLET PO SCH (07:56)
[2019-02-16] MEDS: PANTOPRAZOLE SODIUM 40 MG/VIAL IV SCH (07:57)
[2019-02-16 08:22] LABS: BG BASE EXCESS 5.4 mmol/L (-2.0-2.0); BG DEOXYHEMOGLOBIN 1.1 % (0.0-5.0); BG HCO3 ACT 29.6 mmol/L (22.0-26.0); BG METHEMOGLOBIN 0.2 % (0.0-1.5); BG OXYGEN SATURATION 98.9 % (92.0-98.5); BG OXYHEMOGLOBIN 97.7 % (94.0-97.0); BG PCO2 41.6 mmHg (35.0-45.0); BG PO2 138.3 mmHg (75.0-100.0); BG SAMPLE SITE LEFT BRACHIAL; BG TIDAL VOLUME(mL) 500 mL; BG TOTAL HEMOGLOBIN 13.8 g/dL (12.0-18.0); BG VENT MODE VENT - SIMV; BG VENT RATE 6 set
[2019-02-16 09:27] LABS: PLATELET ESTIMATE NORMAL
[2019-02-16] MEDS: BUDESONIDE 0.5MG/2ML NEB HHN SCH ×2 (09:32→20:13)
[2019-02-16] MEDS: VANCOMYCIN 750 MG PREMIX 150 ML IV SCH (11:22)
[2019-02-16] MEDS: ENOXAPARIN 40MG/0.4ML SYR SUBCUT SCH (17:25)
[2019-02-16 20:35] LABS: BG BASE EXCESS 6.5 mmol/L (-2.0-2.0); BG CARBOXYHEMOGLOBIN 0.8 % (0.5-1.5); BG DEOXYHEMOGLOBIN 0.9 % (0.0-5.0); BG FRACTION INSPIRED OXYGEN 40; BG HCO3 ACT 30.1 mmol/L (22.0-26.0); BG METHEMOGLOBIN 0.2 % (0.0-1.5); BG OXYGEN SATURATION 99.1 % (92.0-98.5); BG OXYHEMOGLOBIN 98.1 % (94.0-97.0); BG PCO2 39.6 mmHg (35.0-45.0); BG PH 7.499 (7.350-7.450); BG PO2 157.8 mmHg (75.0-100.0); BG PRESSURE SUPPORT 12; BG SAMPLE SITE LEFT RADIAL; BG TOTAL HEMOGLOBIN 13.1 g/dL (12.0-18.0); BG VENT MODE VENT - CPAP
[2019-02-17] VITALS (94 sets, daily range): BP systolic 79–132; BP diastolic 35–89
[2019-02-17] MEDS: IPRATROPIUM/ALBUTEROL 0.5-3(2.5)MG/3ML NEB HHN SCH ×6 (00:27→19:57)
[2019-02-17] MEDS: VANCOMYCIN 750 MG PREMIX 150 ML IV SCH (06:22)
[2019-02-17] MEDS: SODIUM CHLORIDE 0.9% INJ 3ML FLUSH IVF SCH ×3 (06:22→22:00)
[2019-02-17] MEDS: PIPERACILLIN/TAZ 3.375G PREMIX 50 ML IV SCH ×3 (06:56→23:58)
[2019-02-17] MEDS: BUDESONIDE 0.5MG/2ML NEB HHN SCH ×2 (07:51→19:57)
[2019-02-17] MEDS: NEOMY SULF/BACITRAC ZN/POLY OINT 28GM TOP SCH ×2 (09:09→21:50)
[2019-02-17] MEDS: DOCUSATE SODIUM SUGAR FREE 100MG/10ML UDC NG SCH (09:09)
[2019-02-17] MEDS: ASPIRIN 325MG TABLET PO SCH (09:09)
[2019-02-17] MEDS: CLOPIDOGREL 75MG TABLET PO SCH (09:09)
[2019-02-17] MEDS: PANTOPRAZOLE SODIUM 40 MG/VIAL IV SCH (09:09)
[2019-02-17 09:31] LABS: BG BASE EXCESS 6.1 mmol/L (-2.0-2.0); BG CARBOXYHEMOGLOBIN 0.3 % (0.5-1.5); BG DEOXYHEMOGLOBIN 1.2 % (0.0-5.0); BG FRACTION INSPIRED OXYGEN 40; BG HCO3 ACT 30.3 mmol/L (22.0-26.0); BG METHEMOGLOBIN 0.1 % (0.0-1.5); BG OXYGEN SATURATION 98.8 % (92.0-98.5); BG OXYHEMOGLOBIN 98.4 % (94.0-97.0); BG PCO2 42.4 mmHg (35.0-45.0); BG PH 7.472 (7.350-7.450); BG PO2 139.2 mmHg (75.0-100.0); BG PRESSURE SUPPORT 12; BG SAMPLE SITE RIGHT RADIAL; BG TOTAL HEMOGLOBIN 12.7 g/dL (12.0-18.0); BG VENT MODE VENT - CPAP
[2019-02-17] MEDS ORDERED: LACTULOSE 20G/30ML UDC PO NR (15:30)
[2019-02-17] MEDS: ENOXAPARIN 40MG/0.4ML SYR SUBCUT SCH (19:03)
[2019-02-18] VITALS (63 sets, daily range): BP systolic 84–133; BP diastolic 46–86
[2019-02-18] MEDS: IPRATROPIUM/ALBUTEROL 0.5-3(2.5)MG/3ML NEB HHN SCH ×6 (00:37→20:50)
[2019-02-18] MEDS: SODIUM CHLORIDE 0.9% INJ 3ML FLUSH IVF SCH ×3 (04:59→21:34)
[2019-02-18] MEDS ORDERED: VANCOMYCIN 750 MG PREMIX 150 ML IV SCH (05:00)
[2019-02-18 05:43] LABS: HEMATOCRIT. 36.5 % (42.0-52.0); HEMOGLOBIN. 12.7 g/dL (14.0-18.0); MEAN CORPUSCULAR HEMOGLOBIN 33.1 pg (28.0-32.0); MEAN CORPUSCULAR VOLUME 95.4 fL (80.0-94.0); MEAN PLATELET VOLUME 9.2 fl (7.4-10.4); PLATELET 148 x1000/uL (130-400); RED BLOOD CELL COUNT 3.83 mill/uL (4.7-6.1); RED CELL DISTRIBUTION WIDTH 15.1 % (11.6-14.6)
[2019-02-18 06:41] LABS: CHLORIDE 100 mEq/L (98-107)
[2019-02-18 07:15] LABS: PLATELET ESTIMATE NORMAL
[2019-02-18] MEDS: CLOPIDOGREL 75MG TABLET PO SCH (08:06)
[2019-02-18] MEDS: PIPERACILLIN/TAZ 3.375G PREMIX 50 ML IV SCH ×3 (08:06→23:24)
[2019-02-18] MEDS: ASPIRIN 325MG TABLET PO SCH (08:06)
[2019-02-18] MEDS: PANTOPRAZOLE SODIUM 40 MG/VIAL IV SCH (08:06)
[2019-02-18] MEDS: NEOMY SULF/BACITRAC ZN/POLY OINT 28GM TOP SCH ×2 (08:07→21:34)
[2019-02-18] MEDS: BUDESONIDE 0.5MG/2ML NEB HHN SCH ×2 (08:10→20:50)
[2019-02-18] MEDS: DOCUSATE SODIUM SUGAR FREE 100MG/10ML UDC NG SCH (09:00)
[2019-02-18] MEDS: ACETYLCYSTEINE 100MG/ML 10% VIAL 4ML INH SCH (12:01)
[2019-02-18] MEDS: MIDODRINE HCL 2.5MG TABLET PO SCH ×2 (12:54→18:13)
[2019-02-18] MEDS: ENOXAPARIN 40MG/0.4ML SYR SUBCUT SCH (18:14)
[2019-02-19] VITALS (17 sets, daily range): BP systolic 78–126; BP diastolic 37–70
[2019-02-19] MEDS: IPRATROPIUM/ALBUTEROL 0.5-3(2.5)MG/3ML NEB HHN SCH ×6 (00:43→21:57)
[2019-02-19] MEDS: ACETYLCYSTEINE 100MG/ML 10% VIAL 4ML INH SCH ×3 (00:44→14:23)
[2019-02-19 05:52] LABS: BASOPHILS % 2.6 % (0.0-2.0); EOSINOPHILS % 1.6 % (0.0-5.0); HEMOGLOBIN. 11.8 g/dL (14.0-18.0); LYMPHOCYTES % 7.7 % (20.0-50.0); MEAN CORPUSCULAR HEMOGLOBIN 33.8 pg (28.0-32.0); MEAN CORPUSCULAR VOLUME 97.4 fL (80.0-94.0); MONOCYTES % 8.6 % (2.0-8.0); NEUTROPHILS % 79.5 % (40.0-76.0); PLATELET 129 x1000/uL (130-400); RED BLOOD CELL COUNT 3.49 mill/uL (4.7-6.1); RED CELL DISTRIBUTION WIDTH 15.1 % (11.6-14.6)
[2019-02-19 06:03] LABS: CHLORIDE 99 mEq/L (98-107)
[2019-02-19] MEDS: SODIUM CHLORIDE 0.9% INJ 3ML FLUSH IVF SCH ×3 (06:28→21:33)
[2019-02-19] MEDS: PIPERACILLIN/TAZ 3.375G PREMIX 50 ML IV SCH ×2 (06:28→15:26)
[2019-02-19] MEDS: DOCUSATE SODIUM SUGAR FREE 100MG/10ML UDC NG SCH (08:02)
[2019-02-19] MEDS: CLOPIDOGREL 75MG TABLET PO SCH (08:47)
[2019-02-19] MEDS: PANTOPRAZOLE SODIUM 40 MG/VIAL IV SCH (08:47)
[2019-02-19] MEDS: MIDODRINE HCL 2.5MG TABLET PO SCH ×3 (08:48→17:53)
[2019-02-19] MEDS: ASPIRIN 325MG TABLET PO SCH (08:48)
[2019-02-19] MEDS: BUDESONIDE 0.5MG/2ML NEB HHN SCH ×2 (09:16→21:57)
[2019-02-19] MEDS: NEOMY SULF/BACITRAC ZN/POLY OINT 28GM TOP SCH ×2 (10:37→21:33)
[2019-02-19] MEDS: ENOXAPARIN 40MG/0.4ML SYR SUBCUT SCH (17:53)
[2019-02-20] VITALS (7 sets, daily range): BP systolic 96–108; BP diastolic 51–66
[2019-02-20] MEDS: PIPERACILLIN/TAZ 3.375G PREMIX 50 ML IV SCH (00:34)
[2019-02-20] MEDS ORDERED: PIPERACILLIN/TAZ 3.375G PREMIX 50 ML IV SCH (01:00)
[2019-02-20] MEDS: IPRATROPIUM/ALBUTEROL 0.5-3(2.5)MG/3ML NEB HHN SCH ×6 (01:19→20:45)
[2019-02-20] MEDS: ACETYLCYSTEINE 100MG/ML 10% VIAL 4ML INH SCH ×3 (01:19→15:08)
[2019-02-20 06:30] LABS: BASOPHILS % 2.5 % (0.0-2.0); EOSINOPHILS % 1.7 % (0.0-5.0); HEMATOCRIT. 34.7 % (42.0-52.0); HEMOGLOBIN. 11.9 g/dL (14.0-18.0); LYMPHOCYTES % 9.7 % (20.0-50.0); MEAN CORPUSCULAR HEMOGLOBIN 32.4 pg (28.0-32.0); MEAN CORPUSCULAR VOLUME 94.6 fL (80.0-94.0); MEAN PLATELET VOLUME 9.1 fl (7.4-10.4); MONOCYTES % 12.6 % (2.0-8.0); NEUTROPHILS % 73.5 % (40.0-76.0); PLATELET 152 x1000/uL (130-400); RED BLOOD CELL COUNT 3.66 mill/uL (4.7-6.1); RED CELL DISTRIBUTION WIDTH 15.1 % (11.6-14.6)
[2019-02-20] MEDS: SODIUM CHLORIDE 0.9% INJ 3ML FLUSH IVF SCH ×2 (06:37→14:10)
[2019-02-20] MEDS: BUDESONIDE 0.5MG/2ML NEB HHN SCH ×2 (07:28→20:44)
[2019-02-20 07:55] LABS: CHLORIDE 98 mEq/L (98-107)
[2019-02-20] MEDS: DOCUSATE SODIUM SUGAR FREE 100MG/10ML UDC NG SCH (08:39)
[2019-02-20] MEDS: ASPIRIN 325MG TABLET PO SCH (08:39)
[2019-02-20] MEDS: CLOPIDOGREL 75MG TABLET PO SCH (08:39)
[2019-02-20] MEDS: MIDODRINE HCL 2.5MG TABLET PO SCH ×3 (08:40→18:48)
[2019-02-20] MEDS: NEOMY SULF/BACITRAC ZN/POLY OINT 28GM TOP SCH (14:11)
[2019-02-20] MEDS: ENOXAPARIN 40MG/0.4ML SYR SUBCUT SCH (18:49)
[2019-02-21] VITALS: BP 113/74
[2019-02-21] MEDS: ACETYLCYSTEINE 100MG/ML 10% VIAL 4ML INH SCH (00:22)
[2019-02-21] MEDS: IPRATROPIUM/ALBUTEROL 0.5-3(2.5)MG/3ML NEB HHN SCH (00:23)
== END 2019-02-21 01:45 | DRG 207 ==
LOC: ER 13:21 → CVICU 14:25 → ENRESERV 15:23 → 8WST 02-19 15:10
PROVIDERS: ADMIT Internal Medicine; ATTEND Internal Medicine
PROC: 02HV33Z Insertion of Infusion Device into Superior Vena Cava, Percutaneous Approach (ICD-10-PCS; principal; 2019-02-11)
PROC: 5A1955Z Respiratory Ventilation, Greater than 96 Consecutive Hours (ICD-10-PCS; 2019-02-11)
PROC: B548ZZA Ultrasonography of Superior Vena Cava, Guidance (ICD-10-PCS; 2019-02-11)
PROC: 0BH17EZ Insertion of Endotracheal Airway into Trachea, Via Natural or Artificial Opening (ICD-10-PCS; 2019-02-11)
PROC: 5A09357 Assistance with Respiratory Ventilation, Less than 24 Consecutive Hours, Continuous Positive Airway Pressure (ICD-10-PCS; 2019-02-11)
DX: J96.20 Acute and chronic respiratory failure, unspecified whether with hypoxia or hypercapnia (principal); I50.22 Chronic systolic (congestive) heart failure; E46 Unspecified protein-calorie malnutrition; R65.10 Systemic inflammatory response syndrome (SIRS) of non-infectious origin without acute organ dysfunction; E87.1 Hypo-osmolality and hyponatremia; Z68.1 Body mass index [BMI] 19.9 or less, adult; I31.3 Pericardial effusion (noninflammatory); I42.0 Dilated cardiomyopathy; J84.9 Interstitial pulmonary disease, unspecified; I25.5 Ischemic cardiomyopathy; G80.9 Cerebral palsy, unspecified; I25.10 Atherosclerotic heart disease of native coronary artery without angina pectoris; E03.9 Hypothyroidism, unspecified; K59.00 Constipation, unspecified; F79 Unspecified intellectual disabilities; S50.812A Abrasion of left forearm, initial encounter; S50.811A Abrasion of right forearm, initial encounter; X58.XXXA Exposure to other specified factors, initial encounter; L89.890 Pressure ulcer of other site, unstageable; L89.899 Pressure ulcer of other site, unspecified stage; R00.1 Bradycardia, unspecified; J43.9 Emphysema, unspecified; D72.829 Elevated white blood cell count, unspecified; I45.4 Nonspecific intraventricular block; I25.2 Old myocardial infarction; Z72.0 Tobacco use; Z78.1 Physical restraint status; Z86.73 Personal history of transient ischemic attack (TIA), and cerebral infarction without residual deficits; Z95.5 Presence of coronary angioplasty implant and graft; Y93.89 Activity, other specified; Y92.89 Other specified places as the place of occurrence of the external cause; Y99.8 Other external cause status; Z79.899 Other long term (current) drug therapy
CPT/HCPCS: 31500; 36415; 36569; 36600; 71045; 71275; 76937; 80048; 80202; 82375; 82550; 82553; 82595; 82805; 83605; 83735; 83880; 84134; 84439; 84443; 84478; 84484; 85027; 86850; 86900; 87070; 87804; 92610; 93005; 93970; 93971; 94003; 94640; 99291; A6261; C1725; C9113; J0330; J1650; J1940; J2543; J2704; J2930; J3010; J3370; J3490; J7030; J7040; J7060; J7608; J7620; J7626; Q9967

== ENCOUNTER 2019-06-27 21:05 | Inpatient (IN) | payer MEDICARE, MEDICAID ==
[~2019-06-27] VITALS: Ht 160 cm; Wt 56.2 kg
[2019-06-27] MEDS ORDERED: IPRATROPIUM BROMIDE (0.02%) 0.5MG/2.5ML NEB HHN STA (21:28)
[2019-06-27] MEDS ORDERED: ALBUTEROL (0.083%) 2.5MG/3ML NEB HHN STA (21:28)
[2019-06-27 21:49] LABS: HEMATOCRIT. 43.4 % (42.0-52.0); HEMOGLOBIN. 14.4 g/dL (14.0-18.0); MEAN CORPUSCULAR HEMOGLOBIN 30.8 pg (28.0-32.0); MEAN CORPUSCULAR VOLUME 92.6 fL (80.0-94.0); MEAN PLATELET VOLUME 8.4 fl (7.4-10.4); PLATELET 209 x1000/uL (130-400); RED BLOOD CELL COUNT 4.69 mill/uL (4.7-6.1); RED CELL DISTRIBUTION WIDTH 14.8 % (11.6-14.6)
[2019-06-27 21:56] LABS: CHLORIDE 103 mEq/L (98-107)
[2019-06-27] MEDS ORDERED: ASPIRIN 81MG TABLET PO ONE (22:15)
[2019-06-27] MEDS ORDERED: FUROSEMIDE 20MG/2ML VIAL IVP ONE (22:15)
[2019-06-27 22:48] LABS: PLATELET ESTIMATE NORMAL
[2019-06-28] VITALS (30 sets, daily range): BP systolic 66–179; BP diastolic 23–103
[2019-06-28] MEDS ORDERED: SODIUM CHLORIDE 0.9% 1000ML BAG (SEPSIS BOLUS) IV ONE (00:30)
[2019-06-28 01:44] LABS: CLARITY URINE CLOUDY (CLEAR); COLOR URINE YELLOW (YELLOW); KETONES URINE NEGATIVE (NEGATIVE); LEUKOCYTE ESTERASE URINE 3+ (NEGATIVE); NITRITE URINE POSITIVE (NEGATIVE); OCCULT BLOOD URINE TRACE (NEGATIVE); PROTEIN URINE TRACE (NEGATIVE)
[2019-06-28] MEDS ORDERED: CEFEPIME 1,000 MG in DEXTROSE 5% WATER 50 ML IV SCH (02:30)
[2019-06-28] MEDS ORDERED: DOCUSATE SODIUM 100MG CAPSULE PO PRN (07:00)
[2019-06-28] MEDS ORDERED: HYDROCODONE/ACETAMINOPHEN 5/325MG TABLET PO PRN (07:00)
[2019-06-28] MEDS ORDERED: MAGNESIUM/ALUMINUM HYDROXIDE/SIMETHICONE 30ML UDC PO PRN (07:00)
[2019-06-28] MEDS ORDERED: CLONIDINE 0.1MG TABLET PO PRN (07:00)
[2019-06-28] MEDS ORDERED: GUAIFENESIN 200MG/10ML SUGAR FREE UDC PO PRN (07:00)
[2019-06-28] MEDS ORDERED: ACETAMINOPHEN 325MG TABLET PO PRN (07:00)
[2019-06-28] MEDS ORDERED: DIPHENHYDRAMINE 50MG/ML VIAL IV PRN (07:00)
[2019-06-28] MEDS ORDERED: IPRATROPIUM/ALBUTEROL 0.5-3(2.5)MG/3ML NEB NEB PRN (07:00)
[2019-06-28] MEDS ORDERED: LORAZEPAM 2MG/ML CPJ IV PRN (07:00)
[2019-06-28] MEDS ORDERED: ONDANSETRON HCL 4MG/2ML INJ IV PRN (07:00)
[2019-06-28] MEDS ORDERED: MORPHINE SULFATE 2 MG/ML CPJ (NOT FOR IM USE) IV PRN (07:00)
[2019-06-28 07:56] LABS: CHLORIDE 104 mEq/L (98-107)
[2019-06-28] MEDS ORDERED: ENOXAPARIN 40MG/0.4ML SYR SUBCUT NR (08:00)
[2019-06-28] MEDS ORDERED: LEVOFLOXACIN 500MG PREMIX 100 ML IV NR (08:00)
[2019-06-28] MEDS ORDERED: ASPIRIN 81MG EC TABLET PO SCH (09:00)
[2019-06-28] MEDS ORDERED: NA PHOS,M-B/NA PHOS,DI-BA ENEMA 118ML PR PRN (09:00)
[2019-06-28] MEDS ORDERED: SODIUM CHLORIDE 0.9% 1,000 ML IV SCH (10:30)
[2019-06-28] MEDS: IPRATROPIUM/ALBUTEROL 0.5-3(2.5)MG/3ML NEB HHN SCH ×2 (13:52→20:31)
[2019-06-28] MEDS: BUDESONIDE 0.5MG/2ML NEB HHN SCH ×2 (13:52→20:31)
[2019-06-28 20:27] LABS: CREATINE KINASE MB FRACTION 10.2 ng/mL (0.5-3.6)
[2019-06-28] MEDS ORDERED: CLOPIDOGREL 75MG TABLET PO SCH (22:15)
[2019-06-28] MEDS: METOPROLOL TARTRATE 25MG TABLET PO SCH (22:43)
[2019-06-29] VITALS (49 sets, daily range): BP systolic 79–188; BP diastolic 28–122
[2019-06-29] MEDS: IPRATROPIUM/ALBUTEROL 0.5-3(2.5)MG/3ML NEB HHN SCH ×4 (02:00→20:19)
[2019-06-29 04:46] LABS: HEMATOCRIT. 35.1 % (42.0-52.0); MEAN CORPUSCULAR HEMOGLOBIN 31.8 pg (28.0-32.0); MEAN CORPUSCULAR VOLUME 92.8 fL (80.0-94.0); MEAN PLATELET VOLUME 8.7 fl (7.4-10.4); PLATELET 166 x1000/uL (130-400); RED BLOOD CELL COUNT 3.78 mill/uL (4.7-6.1); RED CELL DISTRIBUTION WIDTH 14.2 % (11.6-14.6)
[2019-06-29 04:53] LABS: CHLORIDE 104 mEq/L (98-107)
[2019-06-29 05:04] LABS: LDL CHOLESTEROL 68 mg/dL (5-100)
[2019-06-29 05:05] LABS: CREATINE KINASE 151 IU/L (39-308); HDL CHOLESTEROL 45 mg/dL (40-59); T4 FREE 1.04 ng/dL (0.76-1.46)
[2019-06-29 05:08] LABS: CREATINE KINASE MB FRACTION 6.8 ng/mL (0.5-3.6)
[2019-06-29] MEDS ORDERED: LEVOFLOXACIN 500MG PREMIX 100 ML IV SCH (08:00)
[2019-06-29] MEDS ORDERED: ENOXAPARIN 40MG/0.4ML SYR SUBCUT SCH (09:00)
[2019-06-29] MEDS ORDERED: CARVEDILOL 3.125 MG TABLET PO SCH (09:00)
[2019-06-29] MEDS: CLOPIDOGREL 75MG TABLET PO SCH (09:01)
[2019-06-29] MEDS: BUDESONIDE 0.5MG/2ML NEB HHN SCH (09:01)
[2019-06-29] MEDS: METOPROLOL TARTRATE 25MG TABLET PO SCH ×2 (09:02→20:40)
[2019-06-29] MEDS: ASPIRIN 81MG TABLET PO SCH (09:05)
[2019-06-29 10:54] LABS: PLATELET ESTIMATE NORMAL
[2019-06-29 15:15] LABS: CREATINE KINASE MB FRACTION 4.6 ng/mL (0.5-3.6)
[2019-06-30] VITALS (33 sets, daily range): BP systolic 77–152; BP diastolic 29–93
[2019-06-30 00:43] LABS: CREATINE KINASE MB FRACTION 3.7 ng/mL (0.5-3.6)
[2019-06-30] MEDS: IPRATROPIUM/ALBUTEROL 0.5-3(2.5)MG/3ML NEB HHN SCH ×4 (00:57→20:50)
[2019-06-30 05:45] LABS: HEMATOCRIT. 36.2 % (42.0-52.0); HEMOGLOBIN. 12.3 g/dL (14.0-18.0); MEAN CORPUSCULAR HEMOGLOBIN 31.5 pg (28.0-32.0); MEAN PLATELET VOLUME 8.6 fl (7.4-10.4); PLATELET 158 x1000/uL (130-400); RED BLOOD CELL COUNT 3.89 mill/uL (4.7-6.1); RED CELL DISTRIBUTION WIDTH 14.6 % (11.6-14.6)
[2019-06-30 05:53] LABS: CHLORIDE 101 mEq/L (98-107)
[2019-06-30 08:33] LABS: PLATELET ESTIMATE NORMAL
[2019-06-30] MEDS: CLOPIDOGREL 75MG TABLET PO SCH (09:00)
[2019-06-30] MEDS ORDERED: LISINOPRIL 2.5MG TABLET PO SCH (10:00)
[2019-06-30] MEDS ORDERED: LEVOFLOXACIN 500MG PREMIX 100 ML IV SCH (10:00)
[2019-06-30] MEDS: ASPIRIN 81MG TABLET PO SCH (10:03)
[2019-06-30] MEDS ORDERED: ENOXAPARIN 40MG/0.4ML SYR SUBCUT SCH (10:15)
[2019-06-30] MEDS: BUDESONIDE 0.5MG/2ML NEB HHN SCH ×2 (10:22→20:50)
[2019-06-30] MEDS: FUROSEMIDE 100MG/10ML VIAL IVP SCH (10:44)
[2019-06-30] MEDS: POTASSIUM CHLORIDE 10MEQ TABLET SR PO SCH (10:44)
[2019-06-30] MEDS ORDERED: REGADENOSON 0.4 MG/5 ML IV ONE (10:45)
[2019-06-30] MEDS: CEFTRIAXONE 1 G PREMIX 50 ML IV SCH (12:27)
[2019-06-30] MEDS: ATORVASTATIN CALCIUM 10MG TABLET PO SCH (20:28)
[2019-06-30] MEDS ORDERED: CARVEDILOL 6.25 MG TABLET PO SCH (21:00)
[2019-07-01] VITALS (16 sets, daily range): BP systolic 73–121; BP diastolic 40–80
[2019-07-01] MEDS: IPRATROPIUM/ALBUTEROL 0.5-3(2.5)MG/3ML NEB HHN SCH ×4 (00:59→20:11)
[2019-07-01 07:14] LABS: EOSINOPHILS % 3.2 % (0.0-5.0); HEMATOCRIT. 35.3 % (42.0-52.0); HEMOGLOBIN. 12.2 g/dL (14.0-18.0); LYMPHOCYTES % 7.7 % (20.0-50.0); MEAN CORPUSCULAR HEMOGLOBIN 31.7 pg (28.0-32.0); MEAN CORPUSCULAR VOLUME 92.1 fL (80.0-94.0); MEAN PLATELET VOLUME 9.1 fl (7.4-10.4); MONOCYTES % 10.2 % (2.0-8.0); NEUTROPHILS % 77.9 % (40.0-76.0); PLATELET 164 x1000/uL (130-400); RED BLOOD CELL COUNT 3.83 mill/uL (4.7-6.1); RED CELL DISTRIBUTION WIDTH 14.4 % (11.6-14.6)
[2019-07-01 07:56] LABS: CHLORIDE 98 mEq/L (98-107)
[2019-07-01] MEDS: BUDESONIDE 0.5MG/2ML NEB HHN SCH ×2 (08:00→09:00)
[2019-07-01] MEDS: ENOXAPARIN 40MG/0.4ML SYR SUBCUT SCH ×2 (09:00→13:56)
[2019-07-01] MEDS ORDERED: REGADENOSON 0.4 MG/5 ML IV ONE (11:45)
[2019-07-01] MEDS: FUROSEMIDE 100MG/10ML VIAL IVP SCH (13:56)
[2019-07-01] MEDS: CLOPIDOGREL 75MG TABLET PO SCH (13:56)
[2019-07-01] MEDS: ASPIRIN 81MG TABLET PO SCH (13:56)
[2019-07-01] MEDS: CARVEDILOL 3.125 MG TABLET PO SCH ×2 (13:57→21:00)
[2019-07-01] MEDS: POTASSIUM CHLORIDE 10MEQ TABLET SR PO SCH (13:57)
[2019-07-01] MEDS: CEFTRIAXONE 1 G PREMIX 50 ML IV SCH (15:08)
[2019-07-01] MEDS: ATORVASTATIN CALCIUM 10MG TABLET PO SCH (22:07)
[2019-07-02] VITALS (9 sets, daily range): BP systolic 86–135; BP diastolic 24–98
[2019-07-02] MEDS: IPRATROPIUM/ALBUTEROL 0.5-3(2.5)MG/3ML NEB HHN SCH ×3 (02:11→14:22)
[2019-07-02 05:49] LABS: BASOPHILS % 1.4 % (0.0-2.0); EOSINOPHILS % 6.8 % (0.0-5.0); HEMATOCRIT. 36.7 % (42.0-52.0); HEMOGLOBIN. 12.6 g/dL (14.0-18.0); LYMPHOCYTES % 8.6 % (20.0-50.0); MEAN CORPUSCULAR HEMOGLOBIN 32.1 pg (28.0-32.0); MEAN CORPUSCULAR VOLUME 93.5 fL (80.0-94.0); MEAN PLATELET VOLUME 8.3 fl (7.4-10.4); MONOCYTES % 10.1 % (2.0-8.0); NEUTROPHILS % 73.1 % (40.0-76.0); PLATELET 163 x1000/uL (130-400); RED BLOOD CELL COUNT 3.93 mill/uL (4.7-6.1); RED CELL DISTRIBUTION WIDTH 14.6 % (11.6-14.6)
[2019-07-02 05:57] LABS: CHLORIDE 97 mEq/L (98-107)
[2019-07-02] MEDS ORDERED: FUROSEMIDE 100MG/10ML VIAL IVP SCH (09:00)
[2019-07-02] MEDS: ENOXAPARIN 40MG/0.4ML SYR SUBCUT SCH (10:00)
[2019-07-02] MEDS ORDERED: FUROSEMIDE 40MG TABLET PO SCH (10:00)
[2019-07-02] MEDS: ASPIRIN 81MG TABLET PO SCH (10:00)
[2019-07-02] MEDS: CARVEDILOL 3.125 MG TABLET PO SCH (10:03)
[2019-07-02] MEDS: POTASSIUM CHLORIDE 10MEQ TABLET SR PO SCH (10:04)
[2019-07-02] MEDS: CLOPIDOGREL 75MG TABLET PO SCH (10:04)
[2019-07-02] MEDS: CEFTRIAXONE 1 G PREMIX 50 ML IV SCH (12:00)
== END 2019-07-02 17:25 | DRG 871 ==
LOC: EDBEDREQ 22:32 → EDBEDREQTM 22:32 → ER 22:57 → CVICU 06-28 01:51 → EDBEDREQTM 06-28 01:54 → EDBEDREQDT 06-28 01:54 → EDBEDREQSVC 06-28 01:54 → ENRESERV 06-28 07:20 → 3WST 06-30 18:38
PROVIDERS: ADMIT Internal Medicine; ATTEND Internal Medicine
PROC: 06HY33Z Insertion of Infusion Device into Lower Vein, Percutaneous Approach (ICD-10-PCS; principal; 2019-06-28)
DX: A41.50 Gram-negative sepsis, unspecified (principal); J96.00 Acute respiratory failure, unspecified whether with hypoxia or hypercapnia; I50.23 Acute on chronic systolic (congestive) heart failure; J96.01 Acute respiratory failure with hypoxia; N39.0 Urinary tract infection, site not specified; E46 Unspecified protein-calorie malnutrition; J84.9 Interstitial pulmonary disease, unspecified; D64.9 Anemia, unspecified; G80.9 Cerebral palsy, unspecified; J44.9 Chronic obstructive pulmonary disease, unspecified; I25.10 Atherosclerotic heart disease of native coronary artery without angina pectoris; I25.5 Ischemic cardiomyopathy; F17.210 Nicotine dependence, cigarettes, uncomplicated; E78.5 Hyperlipidemia, unspecified; L89.320 Pressure ulcer of left buttock, unstageable; F79 Unspecified intellectual disabilities; I11.0 Hypertensive heart disease with heart failure; I44.7 Left bundle-branch block, unspecified; K21.9 Gastro-esophageal reflux disease without esophagitis; Z79.02 Long term (current) use of antithrombotics/antiplatelets; Z79.899 Other long term (current) drug therapy; I25.2 Old myocardial infarction; Z86.73 Personal history of transient ischemic attack (TIA), and cerebral infarction without residual deficits; Z95.5 Presence of coronary angioplasty implant and graft; Z68.22 Body mass index [BMI] 22.0-22.9, adult
CPT/HCPCS: 36415; 71045; 78452; 80048; 80061; 81003; 82550; 82553; 83036; 83605; 83880; 84145; 84439; 84443; 84484; 85379; 87077; 87186; 93005; 93017; 93306; 94640; 96374; 97162; 97530; 99291; A9500; J0692; J0696; J1650; J1940; J1956; J2785; J7040; J7060; J7611; J7620; J7626; A4315

== ENCOUNTER 2022-06-09 10:24 | Emergency (ER) | payer MEDICARE, MEDICAID ==
[~2022-06-09] VITALS: Ht 165.1 cm; Wt 50.0 kg
[2022-06-09 10:34] VITALS: BP 131/77
[2022-06-09] MEDS ORDERED: LINA145C PO (10:43)
[2022-06-09] MEDS ORDERED: CLOP-31 PO (10:43)
[2022-06-09] MEDS ORDERED: ATOR10TA69 PO (10:43)
[2022-06-09] MEDS ORDERED: AMYL1CAP59 PO (10:43)
[2022-06-09] MEDS ORDERED: FURO40TA5 PO (10:43)
[2022-06-09] MEDS ORDERED: CARV3.1242 PO (10:43)
[2022-06-09] MEDS ORDERED: POTA-205 PO (10:43)
[2022-06-09] MEDS ORDERED: ACETAMINOPHEN 325MG TABLET PO STA (11:19)
[2022-06-09] MEDS ORDERED: SODIUM CHLORIDE 0.9% 1,000 ML IV ONE (12:30)
[2022-06-09 13:26] LABS: BASOPHILS % 0.7 % (0.0-2.0); EOSINOPHILS % 1.9 % (0.0-5.0); HEMATOCRIT. 29.3 % (42.0-52.0); HEMOGLOBIN. 9.8 g/dL (14.0-18.0); LYMPHOCYTES % 8.5 % (20.0-50.0); MEAN CORPUSCULAR HEMOGLOBIN 31.6 pg (28.0-32.0); MEAN CORPUSCULAR VOLUME 94.9 fL (80.0-94.0); MONOCYTES % 7.5 % (2.0-8.0); NEUTROPHILS % 81.4 % (40.0-76.0); PLATELET 116 x1000/uL (130-400); RED BLOOD CELL COUNT 3.09 mill/uL (4.7-6.1); RED CELL DISTRIBUTION WIDTH 14.6 % (11.6-14.6)
[2022-06-09 13:36] LABS: INR 1.4; PROTHROMBIN TIME 15.1 sec (9.6-11.0)
[2022-06-09] MEDS ORDERED: ACETAMINOPHEN 325MG TABLET PO NR (14:00)
[2022-06-09 15:15] LABS: CHLORIDE 103 mEq/L (98-107)
[2022-06-09 16:50] LABS: CLARITY URINE CLEAR (CLEAR); COLOR URINE YELLOW (YELLOW); KETONES URINE NEGATIVE (NEGATIVE); LEUKOCYTE ESTERASE URINE NEGATIVE (NEGATIVE); NITRITE URINE NEGATIVE (NEGATIVE); OCCULT BLOOD URINE NEGATIVE (NEGATIVE); PH URINE 5.5 (4.5-8.0); PROTEIN URINE NEGATIVE (NEGATIVE); SPECIFIC GRAVITY URINE 1.009 (1.005-1.030); UROBILINOGEN URINE 0.2 E.U./dL (0.2-1.0)
[2022-06-09] MEDS ORDERED: ACET-2708 PO (17:40)
[2022-06-09] MEDS ORDERED: BISM-77 PO (17:40)
== END 2022-06-09 17:54 | disposition home or self-care (01) ==
LOC: ER 10:24
DX: K52.9 Noninfective gastroenteritis and colitis, unspecified (principal); D64.9 Anemia, unspecified; I10 Essential (primary) hypertension; J44.1 Chronic obstructive pulmonary disease with (acute) exacerbation; E78.00 Pure hypercholesterolemia, unspecified; Z20.822 Contact with and (suspected) exposure to COVID-19; Z98.890 Other specified postprocedural states; Z86.59 Personal history of other mental and behavioral disorders
CPT/HCPCS: 36415; 71045; 74176; 80053; 81003; 83690; 85025; 85610; 87426; 93005; 96360; 99285; C9803; J7030; A4315

== ENCOUNTER 2022-07-21 15:39 | Emergency (ER) | payer MEDICARE, MEDICAID ==
[~2022-07-21] VITALS: Ht 160 cm; Wt 75.0 kg
[~2022-07-21 15:39] MED LIST: ACET-2708 PO; AMYL1CAP59 PO; ATOR10TA69 PO; BISM-77 PO; CARV3.1242 PO; CLOP-31 PO; FURO40TA5 PO; LINA145C PO; POTA-205 PO
[2022-07-22 02:11] LABS: HEMATOCRIT. 39.9 % (42.0-52.0); HEMOGLOBIN. 14.3 g/dL (14.0-18.0); MEAN CORPUSCULAR HEMOGLOBIN 32.8 pg (28.0-32.0); MEAN CORPUSCULAR VOLUME 91.9 fL (80.0-94.0); MEAN PLATELET VOLUME 9.2 fl (7.4-10.4); PLATELET 111 x1000/uL (130-400); RED BLOOD CELL COUNT 4.35 mill/uL (4.7-6.1); RED CELL DISTRIBUTION WIDTH 15.6 % (11.6-14.6)
[2022-07-22 02:13] LABS: CHLORIDE 98 mEq/L (98-107)
[2022-07-22 03:47] LABS: PLATELET ESTIMATE DECREASED
[2022-07-22] MEDS ORDERED: SODIUM CHLORIDE 0.9% 1,000 ML IV ONE (06:15)
[2022-07-22 10:40] LABS: CLARITY URINE CLOUDY (CLEAR); COLOR URINE YELLOW (YELLOW); KETONES URINE 2+ (NEGATIVE); LEUKOCYTE ESTERASE URINE 3+ (NEGATIVE); NITRITE URINE NEGATIVE (NEGATIVE); OCCULT BLOOD URINE 3+ (NEGATIVE); PH URINE 5.5 (4.5-8.0); PROTEIN URINE 1+ (NEGATIVE); SPECIFIC GRAVITY URINE 1.016 (1.005-1.030)
[2022-07-22] MEDS ORDERED: CIPR-263 MT (12:53)
[2022-07-22 13:15] VITALS: BP 100/59
== END 2022-07-22 13:20 | disposition home or self-care (01) ==
LOC: ER 15:39
DX: R53.1 Weakness (principal); R41.82 Altered mental status, unspecified; J44.9 Chronic obstructive pulmonary disease, unspecified; E78.00 Pure hypercholesterolemia, unspecified; I10 Essential (primary) hypertension; R56.9 Unspecified convulsions; I25.10 Atherosclerotic heart disease of native coronary artery without angina pectoris; F79 Unspecified intellectual disabilities; G80.9 Cerebral palsy, unspecified; F17.210 Nicotine dependence, cigarettes, uncomplicated; Z98.890 Other specified postprocedural states
CPT/HCPCS: 36415; 71250; 80053; 81003; 84484; 85025; 87077; 87186; 96360; 99283

== ENCOUNTER 2025-06-15 12:54 | Inpatient (IN) | payer MEDICARE, MEDICAID ==
[~2025-06-15] VITALS: Ht 165.1 cm; Wt 55.6 kg
[2025-06-15] MEDS: IPRATROPIUM/ALBUTEROL 0.5-3(2.5)MG/3ML NEB NEB SCH (01:31)
[~2025-06-15 12:54] MED LIST changes: +CIPR-263 MT
[2025-06-15] MEDS ORDERED: IPRATROPIUM/ALBUTEROL 0.5-3(2.5)MG/3ML NEB HHN ONE (13:30)
[2025-06-15] MEDS: CEFTRIAXONE 1GM/50ML 50 ML IV ONE (13:56)
[2025-06-15 14:22] LABS: BG BASE EXCESS 1.9 mmol/L (-2.0-3.0); BG CARBOXYHEMOGLOBIN 1.1 % (0.5-1.5); BG DEOXYHEMOGLOBIN 1.2 % (0.0-5.0); BG FLOW(L/min) 4.00 L/min; BG FRACTION INSPIRED OXYGEN 36; BG HCO3 ACT 27.1 mmol/L (21.0-28.0); BG METHEMOGLOBIN 0.0 % (0.5-1.5); BG OXYGEN SATURATION 98.8 % (94.0-98.0); BG OXYHEMOGLOBIN 97.7 % (94.0-98.0); BG PCO2 44.9 mmHg (35.0-48.0); BG PH 7.399 (7.350-7.450); BG PO2 131.2 mmHg (83.0-108.0); BG SAMPLE SITE RIGHT BRACHIAL; BG TOTAL HEMOGLOBIN 12.9 g/dL (13.5-17.5); BG VENT MODE NASAL CANNULA
[2025-06-15 15:26] VITALS: PULSE 60; RESP 29; O2SAT 99
[2025-06-15] MEDS: IPRATROPIUM/ALBUTEROL 0.5-3(2.5)MG/3ML NEB HHN ONE (15:26)
[2025-06-15 15:47] LABS: HEMATOCRIT. 37.5 % (42.0-52.0); HEMOGLOBIN. 12.8 g/dL (14.0-18.0); MEAN PLATELET VOLUME 8.4 fl (7.4-10.4); PLATELET 126 x1000/uL (130-400); RED BLOOD CELL COUNT 4.03 mill/uL (4.7-6.1); RED CELL DISTRIBUTION WIDTH 14.9 % (11.6-14.6)
[2025-06-15 16:02] LABS: CREATININE 1.0 mg/dL (0.6-1.3); ETHANOL BLOOD < 10 mg/dL (<10); UREA NITROGEN BLOOD 21 mg/dL (9-23)
[2025-06-15 16:03] LABS: ASPARTATE AMINOTRANSFERASE 22 IU/L (<34); LYMPHOCYTES % MANUAL 6.0 % (20.0-50.0); MONOCYTES % MANUAL 10.0 % (2.0-8.0); NEUTROPHILS % MANUAL 84.0 % (45.0-75.0); TROPONIN I HIGH SENSITIVITY 19 ng/L (3.0-53)
[2025-06-15 16:04] LABS: BILIRUBIN DIRECT 0.3 mg/dL (<=3.0); BILIRUBIN TOTAL 0.6 mg/dL (0.1-1.0); PLATELET ESTIMATE DECREASED; PROTEIN TOTAL 7.9 g/dL (6.0-8.3)
[2025-06-15] MEDS ORDERED: DOCUSATE SODIUM 100MG CAPSULE PO PRN (16:45)
[2025-06-15] MEDS ORDERED: ONDANSETRON HCL 4MG/2ML INJ IV PRN (16:45)
[2025-06-15] MEDS ORDERED: GUAIFENESIN 200MG/10ML SUGAR FREE UDC PO PRN (16:45)
[2025-06-15] MEDS ORDERED: MAGNESIUM/ALUMINUM HYDROXIDE/SIMETHICONE 30ML UDC PO PRN (16:45)
[2025-06-15] MEDS ORDERED: CLONIDINE 0.1MG TABLET PO PRN (16:45)
[2025-06-15] MEDS ORDERED: ACETAMINOPHEN 325MG TABLET PO PRN (16:45)
[2025-06-15] MEDS ORDERED: IPRATROPIUM/ALBUTEROL 0.5-3(2.5)MG/3ML NEB NEB PRN (16:45)
[2025-06-15] MEDS: SODIUM CHLORIDE 0.9% 1,000 ML IV ONE (17:09)
[2025-06-15] MEDS ORDERED: ENOXAPARIN 40MG/0.4ML SYR SUBCUT SCH (18:00)
[2025-06-15 19:04] VITALS: BP 129/65; RESP 20; TEMP 36.44736; O2SAT 98
[2025-06-15 20:00] VITALS: BP 112/46; PULSE 67; RESP 18; TEMP 37.3; O2SAT 96
[2025-06-15] MEDS: SENNOSIDES/DOCUSATE SOD 8.6/50MG TABLET PO SCH (21:49)
[2025-06-15] MEDS: ATORVASTATIN CALCIUM 10MG TABLET PO SCH (21:49)
[2025-06-15] MEDS: FAMOTIDINE 20MG TABLET PO SCH (21:50)
[2025-06-15 23:33] VITALS: BP 105/51; PULSE 68; RESP 20; TEMP 37.9192
[2025-06-16 00:20] VITALS: BP 105/51; PULSE 68; RESP 20; TEMP 37.9; O2SAT 100
[2025-06-16] MEDS: ACETAMINOPHEN 325MG TABLET PO PRN (01:03)
[2025-06-16 04:00] VITALS: BP 119/61; PULSE 62; RESP 20; TEMP 37; O2SAT 98
[2025-06-16 06:54] LABS: BASOPHILS % 0.4 % (0.0-2.0); EOSINOPHILS % 1.5 % (0.0-5.0); HEMATOCRIT. 33.8 % (42.0-52.0); HEMOGLOBIN. 11.6 g/dL (14.0-18.0); LYMPHOCYTES % 8.2 % (20.0-50.0); MEAN PLATELET VOLUME 8.6 fl (7.4-10.4); MONOCYTES % 10.0 % (2.0-8.0); NEUTROPHILS % 79.9 % (40.0-76.0); PLATELET 108 x1000/uL (130-400); RED BLOOD CELL COUNT 3.62 mill/uL (4.7-6.1); RED CELL DISTRIBUTION WIDTH 14.7 % (11.6-14.6)
[2025-06-16 07:14] LABS: CREATININE 0.7 mg/dL (0.6-1.3); TRIGLYCERIDE 100 mg/dL (0-150); UREA NITROGEN BLOOD 16 mg/dL (9-23)
[2025-06-16 07:15] LABS: LDL CHOLESTEROL 61 mg/dL (5-100)
[2025-06-16 07:20] LABS: T4 FREE 1.12 ng/dL (0.89-1.76)
[2025-06-16 08:35] VITALS: BP 98/45; PULSE 52; RESP 19; TEMP 36.2; O2SAT 96
[2025-06-16 10:07] LABS: PHOSPHORUS 2.8 mg/dL (2.5-4.9)
[2025-06-16 12:17] VITALS: BP 98/47; PULSE 60; RESP 19; TEMP 36.5; O2SAT 96
[2025-06-16 16:04] VITALS: BP 118/57; PULSE 59; RESP 20; TEMP 36.3; O2SAT 100
[2025-06-16 18:39] LABS: CREATININE 0.7 mg/dL (0.6-1.3); UREA NITROGEN BLOOD 20 mg/dL (9-23)
[2025-06-16 20:00] VITALS: BP 109/62; PULSE 68; RESP 20; TEMP 36.4; O2SAT 100
[2025-06-17] VITALS (10 sets, daily range): BP systolic 105–144; BP diastolic 54–73; PULSE 62–98; RESP 15–20; TEMP 36.4–36.7; O2SAT 94–100
[2025-06-17] MEDS ORDERED: CLOP-31 PO (11:22)
[2025-06-17] MEDS ORDERED: ATOR10TA69 PO (11:22)
[2025-06-17] MEDS ORDERED: CARV3.1242 PO (11:22)
[2025-06-17] MEDS ORDERED: FURO40TA5 PO (11:22)
[2025-06-18 00:06] VITALS: BP 120/69; PULSE 67; RESP 18; TEMP 36.3; O2SAT 97
[2025-06-18 03:53] VITALS: BP 144/73; PULSE 76; RESP 20; TEMP 36.3; O2SAT 96
[2025-06-18 08:00] VITALS: BP 148/91; PULSE 75; RESP 20; TEMP 36.2; O2SAT 98
[2025-06-18 12:00] VITALS: BP 106/55; PULSE 73; RESP 18; TEMP 36.7; O2SAT 99
== END 2025-06-18 12:20 | disposition home health service (06) | DRG 189 ==
LOC: ER 12:54 → 7WST 16:03 → EDBEDREQ 16:08 → ENRESERV 17:52
PROVIDERS: ADMIT Internal Medicine; ATTEND Internal Medicine
DX: J96.01 Acute respiratory failure with hypoxia (principal); J44.1 Chronic obstructive pulmonary disease with (acute) exacerbation; I50.22 Chronic systolic (congestive) heart failure; G93.49 Other encephalopathy; J43.9 Emphysema, unspecified; G93.89 Other specified disorders of brain; K59.09 Other constipation; E78.00 Pure hypercholesterolemia, unspecified; D64.9 Anemia, unspecified; D69.6 Thrombocytopenia, unspecified; I11.0 Hypertensive heart disease with heart failure; G40.909 Epilepsy, unspecified, not intractable, without status epilepticus; Z99.3 Dependence on wheelchair; Z79.899 Other long term (current) drug therapy; Z87.891 Personal history of nicotine dependence
CPT/HCPCS: 36415; 36600; 71045; 80048; 80061; 80076; 80320; 82375; 82550; 82805; 83605; 83735; 83880; 84100; 84145; 84439; 84443; 84484; 85025; 93005; 93970; 94070; 94640; 94664; 96365; 99291; A4606; J0696; G0480